=== PATIENT | male | born 1990 | race Caucasian/White ===

== ENCOUNTER 2016-06-18 00:42 | Emergency (ER) | payer OTHER ==
[~2016-06-18] VITALS: Ht 195.6 cm; Wt 79.4 kg
--- NOTE | 2016-06-18 00:16 | ED PSYCHIATRIC COMPLAINT ---
History of Present Illness General Chief Complaint: Psychiatric Related Complaint Stated Complaint: +SI Vital Signs & Intake/Output Vital Signs & Intake/Output Vital Signs Date Time Temp Pulse Resp B/P Pulse O2 O2 Flow FiO2 Ox Delivery Rate 06/18 20 96.7 128 20 180/86 99 Room Air Past History Travel History Traveled to [place] past 21 day No Progress Plan of Care: Orders Procedure Date/time Status Continuous Observation Monitor 06/19 15 Active URINE DRUGS OF ABUSE 06/19 15 Active ED CRISIS PSYCH CONSULT 06/19 15 Active Departure Departure Condition: Stable Departure Forms: Customer Survey General Discharge Information
--- NOTE | 2016-06-18 00:55 | ED PSYCHIATRIC COMPLAINT ---
See Addendum History of Present Illness General Chief Complaint: Psychiatric Related Complaint Stated Complaint: " BIBA +SI" Source: patient, EMS, police Exam Limitations: intoxication Vital Signs & Intake/Output Vital Signs & Intake/Output Vital Signs Date Time Temp Pulse Resp B/P Pulse O2 O2 Flow FiO2 Ox Delivery Rate 06/18 0044 96.7 128 20 180/78 99 Room Air Allergies Coded Allergies: codeine (06/18/16) Uncoded Allergies: OPIATES (06/18/16) Triage Nurses Notes Reviewed? yes HPI: Patient report, please paper. Patient was drinking tonight and began making suicidal comments. Family also states that the patient has been looking up, make a noose on the Internet a few days ago. Family is concerned because she's been having increasing depression and has been drinking alcohol more liberally lately. Patient denies any homicidal ideations. Patient denies any suicidal thoughts or comments. Patient denies any plan. Patient disagrees with what his family has said about him. Past History Travel History Traveled to [place] past 21 day No Medical History Any Pertinent Medical History? none Surgical History Surgical History: non-contributory Psychosocial History Tobacco Use: Never used ETOH Use: occasional use Illicit Drug Use: denies illicit drug use Family History Hx Contributory? No Review of Systems Review of Systems Constitutional: Reports: no symptoms. EENTM: Reports: no symptoms. Respiratory: Reports: no symptoms. Cardiovascular: Reports: no symptoms. GI: Reports: no symptoms. Genitourinary: Reports: no symptoms. Musculoskeletal: Reports: no symptoms. Skin: Reports: no symptoms. Neurological/Psychological: Reports: no symptoms. Hematologic/Endocrine: Reports: no symptoms. Immunologic/Allergic: Reports: no symptoms. All Other Systems: Reviewed and Negative Physical Exam Physical Exam General Appearance: well developed/nourished, mild distress Head: atraumatic Eyes: Bilateral: PERRL, EOMI. Ears, Nose, Throat: normal pharynx, normal ENT inspection, hearing grossly normal Neck: normal inspection, supple Respiratory: normal breath sounds Cardiovascular: regular rate/rhythm Gastrointestinal: soft, non-tender Extremities: normal range of motion Neurological/Psychiatric: no motor/sensory deficits, awake, alert, calm, oriented x 3 Appearance/Memory/Insight: appropriate appearance, appropriate insight, denies illness Behavoir/Eye Contact/Speech: cooperative, normal speech, good eye contact Thoughts/Hallucinations: normal thought pattern, no apparent hallucination Skin: intact, normal color, warm/dry SAD PERSONS Done? CRISIS CONSULT OBTAINED Progress Differential Diagnosis: drug intoxication, drug overdose, drug withdrawal, electrolyte abnormality Plan of Care: Orders Procedure Date/time Status URINE DRUG SCREEN FOR ER ONLY 06/18 46 Active Laboratory Tests 06/18/16 0056: Methadone Screen Pending, Barbiturate Screen Pending, Ur Phencyclidine Scrn Pending, Amphetamines Screen Pending, U Benzodiazepines Scrn Pending, Urine Cocaine Screen Pending, Urine Cannabis Screen Pending Hand-Off Endorsed To: ASHA MATHEW MD Endorsed Time: 0700 Pending: consult (CRISIS) Comments: BREATHALYZER 175. Departure Departure Disposition: STILL A PATIENT Condition: Stable Clinical Impression Primary Impression: Suicidal ideations Departure Forms: Customer Survey General Discharge Information
[2016-06-18 11:33] VITALS: BP 175/80
--- NOTE | 2016-06-18 11:57 | ED PSYCH CRISIS CONSULTATION ---
Crisis Consult Basic Assessment Date of Consult: 06/18/16 Responsible Person/Accompanied By: MARTIN Insurance Authorization: Insurance #1: Insurance name: [employer] Phone number: Policy number: [id number] Group number: [id number] Authorization number: ED Provider: Patient's ED Provider: BREANA MULLINS,CLARK Nevarez Primary Care Physician: Patient's PCP: UNKNOWN PCP's Phone Number: Current Psychiatrist: NONE Chief Complaint: Psychiatric Related Complaint Patient's Quote: "my sister called the police" Present Illness: Pt is a 25 year old male, arriving to ER by ambulance last night. Pt's younger sister who is 22 years old called the police, stating he was looking for rope to make noose. Pt reports he was drinking a few beers with buddies, he states his sister is mad at him because he owes her a lot of money, and he thinks she called police as vengeance. Pt is not open to looking at his own behaviors as a means of concern or to blame. He denies illicit drug use although is positive for cocaine, pt states "maybe someone put it in my drink". Pt does not have a history engaging in mental health or addiction services. He reports he drinks on Sunday and Saturdays. 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 Pt denies si/hi/ah/vh. Pt has been minimizing his etoh use and denies it being problematic. Pt was calm, and cooperative, "looking forward to going home, watching golf and relaxing". I expressed typically having the police bring you to the ER can be seen as wake up call for some things that are going on in his life, that may not go away with out an intervention either for recovery or for mental health. Patient's Address: [address] [place] [address] [place] [address] Other Phone Number: Who Do You Live With? Family Family/Informants Interviewed: Spoke to his Father Moris he is not concerned for his safety, states he threatens this when family hold him accountable. He has no history of si. Father is comfortable with him returning home, and we discussed resources steps to recovery information was given. Allergies - Coded Allergies: codeine (06/18/16) Uncoded Allergies: OPIATES (06/18/16) Current Medications - No Known Home Medications Laboratory Results: Laboratory Tests 06/18/16 0056: Urine Opiates Screen < 100.00, Methadone Screen < 40, Barbiturate Screen < 60, Ur Phencyclidine Scrn < 6.00, Amphetamines Screen 353, U Benzodiazepines Scrn < 85, Urine Cocaine Screen > 1000 H, Urine Cannabis Screen < 5.00 Past History Past Surgical History Surgical History: non-contributory Psychosocial History Strengths/Capabilities: Works manager maritime, has family support Physical Limitations (Interventions): none known Psychiatric Treatment History Psych Treatment Psychiatric Treatment No Diagnosis by History: None Substance Use/Abuse History Drug Use/Abuse Substances Used/Abused Yes Substance Used/Abused Alcohol First Use unknown Last Used 06/17/16 How much used/taken "few beers" How often weekends For how long few years on and off Route of use oral Substance Abuse Treatment Substance Abuse Treatment Past Substance Abuse [place] No Comments: No treatment history, pt denies cocaine, use although positive tox screen. Current Mental Status Mental Status Orientation: Person, Place, Situation Affect: Flat, WNL Speech: WNL Neuro-vegetative: Concentration Poor, Sleep Disturbance Appearance Appearance- Dress/Hygiene: groomed, appropriate Behaviors Thought Process: WNL Thought Content: Entitled Memory: WNL Insight: Poor SI/HI Risk Assessment Past Suicidal Ideation/Attempts No Current Suicidal Ideation/Att No Past Homicidal Ideation/Att: No Current Homicidal Ideation/Attempts No Degree of Intent: None Risk Factors: substance abuse, male Lethality Ratin (mild) PTSD Checklist PTSD Done? 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 Medrano, pt denies si/hi/ah/vh. Parents comfortable with him returning home and plan to monitor and encourage him to get etoh/drug tx. Additional Instructions: n/a Referrals UNKNOWN (PCP/Family)
== END 2016-06-18 12:27 ==
LOC: ERH 00:42
DX: R45.851 Suicidal ideations (principal); F10.10 Alcohol abuse, uncomplicated
CPT/HCPCS: 80307; 93005; 93010; G0463